=== PATIENT | female | born 1970 | race Caucasian/White ===

== ENCOUNTER 2017-07-14 10:45 | Emergency (ER) | payer MEDICAID ==
[~2017-07-14] VITALS: Ht 157.5 cm; Wt 66.5 kg
[2017-07-14 10:47] VITALS: Ht 157.5 cm; Wt 66.5 kg
[2017-07-14] MEDS ORDERED: SOD CHLORIDE 0.9% 1,000 ML IV STA (11:11)
[2017-07-14] MEDS ORDERED: predniSONE 20 MG TAB PO STA (11:11)
[2017-07-14] MEDS ORDERED: ACETAMINOPHEN 500 MG TAB PO STA (11:11)
[2017-07-14] MEDS ORDERED: IPRATROPIUM (NEB) 0.5 MG/2.5 ML AMP NEB STA (11:11)
[2017-07-14] MEDS ORDERED: ALBUTEROL 0.083% (NEB) 2.5 MG/3 ML AMP NEB STA (11:11)
[2017-07-14 11:58] LABS: ADD UMIC YES; UR ASCORBIC ACID NEGATIVE (NEGATIVE); UR BACTERIA MODERATE /HPF (NONE SEEN); UR BILIRUBIN (Dip) NEGATIVE (NEGATIVE); UR BLOOD (Dip) 3+ mg/dL (NEGATIVE); UR CLARITY CLOUDY (CLEAR); UR COLOR YELLOW (YELLOW); UR GLUCOSE (Dip) NEGATIVE (NEGATIVE); UR KETONES (Dip) 2+ mg/dL (NEGATIVE); UR LEUKOCYTE ESTERASE (Dip) 2+ Leu/ul (NEGATIVE); UR MUCUS FEW /HPF (NONE SEEN); UR NITRITE (Dip) NEGATIVE (NEGATIVE); UR RBC 20 /HPF (0-5); UR SPECIFIC GRAVITY (Dip) 1.015 (1.003-1.030); UR SQUAMOUS EPITHELIAL CELL MODERATE /HPF (FEW); UR TOTAL PROTEIN (Dip) 1+ mg/dl (NEGATIVE); UR UROBILINOGEN (Dip) NEGATIVE (NEGATIVE)
[2017-07-14 12:07] LABS: BASOPHILS % 0.2 % (0.0-2.0); EOSINOPHILS % 0.1 % (0.0-7.0); HEMATOCRIT 37.4 % (37.0-47.0); HEMOGLOBIN 12.1 g/dl (12.0-16.0); LYMPHOCYTES % 8.2 % (15.0-51.0); MEAN CORPUSCULAR HEMOGLOBIN 28.7 pg (29.0-33.0); MEAN CORPUSCULAR HGB CONC 32.4 g/dl (32.0-37.0); MEAN CORPUSCULAR VOLUME 88.6 fl (82.0-101.0); MEAN PLATELET VOLUME 10.3 fl (7.4-10.4); MONOCYTE # 1.1 10^3/ul (0.3-0.9); MONOCYTES % 8.7 % (0.0-11.0); NEUTROPHIL # 10.1 10^3/ul (1.6-7.5); NEUTROPHILS % 82.5 % (39.0-77.0); PLATELET COUNT 235 10^3/UL (140-415); RED BLOOD COUNT 4.22 10^6/ul (4.20-5.40); RED CELL DISTRIBUTION WIDTH 13.5 % (11.5-14.5); WHITE BLOOD COUNT 12.2 10^3/ul (4.8-10.8)
--- NOTE | 2017-07-14 12:24 | RADRPT ---
PROCEDURE: XR Chest. CLINICAL INDICATION: Asthma exacerbation TECHNIQUE: Single frontal view of the chest was obtained. COMPARISON: None. FINDINGS: The heart and mediastinum are within normal limits. The lungs are clear. There is no significant pleural effusion or pneumothorax. IMPRESSION: No acute disease. RPTAT: EE Physician Juan Miguel Date Time Electronically viewed and signed by Tom Vela Physician on 07/14/2017 12:24 RA/
[2017-07-14 12:36] LABS: ALBUMIN 4.4 g/dl (3.3-4.9); ALBUMIN/GLOBULIN RATIO 1.46; BILIRUBIN,INDIRECT 0.4 mg/dl (0-1.1); BILIRUBIN,TOTAL 0.4 mg/dl (0.2-1.3); CALCIUM 8.9 mg/dl (8.4-10.2); CREATININE 0.64 mg/dl (0.44-1.00); POTASSIUM 3.7 mmol/L (3.5-5.1); TOTAL PROTEIN 7.4 g/dl (6.1-8.1)
--- NOTE | 2017-07-14 12:48 | ERD ---
ER Documentation Chief Complaint Chief Complaint ANXIETY , ALSO C/O FEVER X 1 DAY HPI This patient is a 47-year-old female who is here presenting complaining of fever that began 2 days ago. She states she went to her primary care doctor and they gave her a prescription for Motrin. She has a history of asthma and also is complaining of cough and shortness of breath and asthma exacerbation. She denies any nausea or vomiting. She denies any abdominal pain but does state she has urinary frequency. No dysuria or hematuria. No night sweats or unplanned weight loss. No diarrhea. ROS All systems reviewed and are negative except as per history of present illness. Allergies Allergies: Coded Allergies: No Known Allergy (Unverified , 07/14/17) PMhx/Soc Medical and Surgical Hx: pt denies Medical Hx, pt denies Surgical Hx Hx Alcohol Use: No Hx Substance Use: No Hx Tobacco Use: No Smoking Status: Never smoker FmHx Family History: No diabetes Physical Exam Vitals Vital Signs Date Time Temp Pulse Resp B/P Pulse Ox O2 Delivery O2 Flow Rate FiO2 07/14/17 11:45 99 20 96 21 07/14/17 10:47 101.2 112 18 136/72 99 Physical Exam INITIAL VITAL SIGNS: Reviewed by me GENERAL: Awake, alert and oriented x 4, well appearing, nontoxic, speaking in full sentences. No acute distress HEAD: Atraumatic NECK: Supple. No masses. Full range of motion. No meningismus. No midline tenderness. THROAT: No tonilar erythema or edema. No exudates. Uvula midline. No kissing tonsils. RESPIRATORY: Clear to auscultation bilaterally. Symmetric chest wall rise. No wheezing or rales. No accessory muscle use. CV: Regular rate and rhythm. No murmurs, rubs, or gallops. ABDOMEN: Soft, non-distended. Nontender. Negative [place]. Negative [place] point tenderness. No CVA tenderness bilaterally. No guarding. No rebound. : Deffered. EXTREMITIES: No clubbing or cyanosis. No edema. Moving all extremities normally. BACK: No midline tenderness to palpation. No step-offs. Result Diagram: 07/14/17 1140 07/14/17 1140 Results 24 hrs Laboratory Tests Test 07/14/17 10:30 07/14/17 11:40 Urine Color YELLOW Urine Clarity CLOUDY Urine pH 6.0 Urine Specific [place] 1.015 Urine Ketones 2+mg/dL Urine Nitrite NEGATIVEmg/dL Urine Bilirubin NEGATIVEmg/dL Urine Urobilinogen NEGATIVEmg/dL Urine Leukocyte Esterase 2+Jamel/ul Urine Microscopic RBC 20/HPF Urine Microscopic WBC 48/HPF Urine Squamous Epithelial Cells MODERATE/HPF Urine Bacteria MODERATE/HPF Urine Mucus FEW/HPF Urine Hemoglobin 3+mg/dL Urine Glucose NEGATIVEmg/dL Urine Total Protein 1+mg/dl White Blood Count 12.210^3/ul Red Blood Count 4.2210^6/ul Hemoglobin 12.1g/dl Hematocrit 37.4% Mean Corpuscular Volume 88.6fl Mean Corpuscular Hemoglobin 28.7pg Mean Corpuscular Hemoglobin Concent 32.4g/dl Red Cell Distribution Width 13.5% Platelet Count 66259^3/UL Mean Platelet Volume 10.3fl Neutrophils % 82.5% Lymphocytes % 8.2% Monocytes % 8.7% Eosinophils % 0.1% Basophils % 0.2% Nucleated Red Blood Cells % 0.0/100WBC Neutrophils # 10.110^3/ul Lymphocytes # 1.010^3/ul Monocytes # 1.110^3/ul Eosinophils # 0.010^3/ul Basophils # 0.010^3/ul Nucleated Red Blood Cells # 0.010^3/ul Sodium Level 140mmol/L Potassium Level 3.7mmol/L Chloride Level 106mmol/L Carbon Dioxide Level 25mmol/L Anion Gap 13 Blood Urea Nitrogen 8mg/dl Creatinine 0.64mg/dl Glucose Level 122mg/dl Calcium Level 8.9mg/dl Total Bilirubin 0.4mg/dl Direct Bilirubin 0.00mg/dl Indirect Bilirubin 0.4mg/dl Aspartate Amino Transf (AST/SGOT) 33IU/L Alanine Aminotransferase (ALT/SGPT) 57IU/L Alkaline Phosphatase 119IU/L Total Protein 7.4g/dl Albumin 4.4g/dl Globulin 3.00g/dl Albumin/Globulin Ratio 1.46 Current Medications Medications (Trade) Dose Ordered Sig/Terry Route PRN Reason Start Time Stop Time Status Last Admin Dose Admin Acetaminophen 1000 mg 1,000 mg ONCE STAT PO 07/14/17 11:11 07/14/17 11:13 DC 07/14/17 12:03 Sodium Chloride (NS) 1,000 ml @ 1,000 mls/hr Q1H STAT IV 07/14/17 11:11 07/14/17 12:10 DC 07/14/17 12:03 Albuterol (Proventil 0.083% (Neb)) 2.5 mg ONCE STAT NEB 07/14/17 11:11 07/14/17 11:13 DC 07/14/17 11:44 Ipratropium [place] (Atrovent 0.02% (Neb)) 0.5 mg ONCE STAT NEB 07/14/17 11:11 07/14/17 11:13 DC 07/14/17 11:44 Prednisone (Prednisone) 60 mg ONCE STAT PO 07/14/17 11:11 07/14/17 11:13 DC 07/14/17 12:03 Procedures/MDM Patient presents with fever 101.2. She is also complaining of cough and shortness of breath. She has a history of asthma. Chest x-ray was negative. She was given a breathing treatment and prednisone with improvements of her symptoms. She has no abdominal pain. Urine does show evidence of urinary tract infection versus pyelonephritis. I doubt kidney stones, or sepsis. She is well-appearing and in no distress. CBC shows elevated white blood cell count of 12, chemistry panel within normal limits. She was given Rocephin IV here and discharged with Cipro, Tylenol, Motrin. Patient counseled regarding my diagnostic impression and care plan. Prior to discharge all questions answered. Pt agrees with treatment plan and understands strict return precautions. Pt is instructed to follow up with primary care provider within 24- 48 hours. Precautionary instructions provided including instructions to return to the ER if not improving or for any worsening or changing symptoms or concerns. Departure Diagnosis: Primary Impression: Pyelonephritis Condition: Stable NANETTE YEBOAH PA-C Jul 14, 2017 12:48
[2017-07-14] MEDS ORDERED: CIPR500T4 PO (12:54)
[2017-07-14] MEDS ORDERED: ACET325T33 PO (12:54)
[2017-07-14] MEDS ORDERED: IBUP-1542 PO (12:54)
[2017-07-14] MEDS ORDERED: CEFTRIAXONE 1 GM/50 ML (PMX) 50 ML IVPB ONE (13:00)
[2017-07-14 13:48] VITALS: BP 120/69; PULSE 97; RESP 18
== END 2017-07-14 13:57 | disposition home or self-care (01) ==
LOC: FTE 10:45
DX: N12 Tubulo-interstitial nephritis, not specified as acute or chronic (principal); R05 Cough
CPT/HCPCS: 36415; 71010; 80053; 81001; 85025; 94664; 96374; J0696; J7030; J7512; Z7502; Z7610